=== PATIENT | male | born 1950 | race Caucasian/White ===

== ENCOUNTER 2020-01-31 11:01 | Day surgery (SDC) | payer OTHER, MEDICARE ==
[~2020-01-31] VITALS: Ht 182.9 cm; Wt 93.9 kg
[~2020-01-31 11:01] MED LIST: PRINIVIL10 MG PO; TRAZ100 PO
--- NOTE | 2020-01-31 11:32 | NUR ---
History, Chart, Medications and Allergies reviewed before start of procedure. Lungs clear T/O to Auscultation. Patient confirms NPO status and agrees with scheduled surgery. Pre-Op teaching done. Pt verbalizes understanding.
--- NOTE | 2020-01-31 14:54 | NUR ---
ADJUNCT INSTRUCTOR | Patient B/P This RN was handed off patient with reported pressures from Anesthesia during OR case being in 180's systolically. B/P cuffed timed out initially on patient arrival, with B/P cuff on left arm. Retried blood pressure on right side and received initial reading of 73/53. Readjusted cuff and initiated another pressure with similar, 73/52. Switched cuff back to left side and got result of 171/75, and then 168/74. Atif RN spoke with surgerons (Dr. Israel and Dr. 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 Dr. Ventura (anesthesia) also aware. Will continue to monitor.
--- NOTE | 2020-01-31 16:51 | NUR ---
TREMORS OF BILATERAL ARMS NOTED WHEN PT EATING PUDDING. PT DENIES HX OF TREMORS. PT DENIES USE OF ETOH, WILL CONTINUE TO MONITOR
--- NOTE | 2020-01-31 17:58 | NUR ---
SUMMARY PT REPORTS VERY MINIMAL PAIN AT THIS TIME AFTER MEDICATED WITH TORADOL AND ROXICODONE. TAKING PO FOOD AND FLUID WITHOUT NAUSEA. ABD BINDER IN PLACE. PT WITH GOOD EFFORT ON IS. CONTINUES WITH SOME TREMORS OF BILAT ARMS. CIWA UNCHANGED FROM INITIAL ASSESSMENT
--- NOTE | 2020-02-01 05:41 | NUR ---
SHIFT SUMMARY: PT POD #1 FOR INCISIONAL HERNIA REPAIR. MIDLINE DRESSING CDI. PAIN BEING MANAGED WITH TORADOL AND 5MG OXY PER EMAR. PT C/O NAUSEA THIS MORNING AND MEDICATED WITH ZOFRAN TWICE. PT REPORTS EMESIS X3. PT DID THROW UP A MODERATE SIZED BLOOD CLOT AT 0440. DR. ARMSTRONG NOTIFIED AT APPROX 0445 AND NO NEW ORDERS OBTAINED AT THIS TIME. WILL CTM. ALL VS WNL. PT VOIDING IN BEDSIDE URINAL.
--- NOTE | 2020-02-01 11:30 | NUR ---
SHIFT ASSESSMENT UPON ENTERING THE ROOM TO ASSESS PT HE WAS SITTING AT THE EDGE OF THE BED AND TALKING WITH SALES APPLICATIONS ENGINEER. HE IS ALERT BUT HIS CONVERSATION IS COMFUSED. PT IS HAVING A FLIGHT OF IDEAS. 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 PT DECLINED BLOOD DRAW. HE ALSO DECLINED TO ALLOW STAFF TO ASSESS HIM. HE HAS AN ABD BINDER IN PLACE WHICH HE DECLINES TO REMOVE FOR SURGICAL SITES TO BE ASSESSED. PT DECLINES ALLOWING STAFF TO LISTEN TO HEART OR LUNGS. AT THIS TIME PT IS OBSERVED SITTING AT THE EDGE OF THE BED ALERT. HE TOLERATED BREAKFAST AND HAS NOT HAD ANY EPISODES OF VOMITING SINCE MY SHIFT BEGAN. WILL CONTIUE TO MONITOR. AT THIS TIME.
--- NOTE | 2020-02-01 11:35 | NUR ---
DR. CHENEY CONSULTED ON PT R/T HIS DELUSIONS. ORDER TO START ABILIFY.
--- NOTE | 2020-02-01 14:07 | NUR ---
UNABLE TO REASON WITH PT REGARDING GOING OUTSIDE TO SMOKE. HE DECLINED A NICOTINE PATCH, HE BELIEVE SMOKING KEEPS AWAY BUGS. IN HIS CURRENT MENTAL STATE STAFF IS UNABLE TO REASON WITH HIM. ORDERS OBTAINED THAT IT IS OK FOR PT TO GO OUTSIDE AND SMOKE. PT IS IN HIS WHEELCHAIR AND CAN SELF PROPEL HIMSELF OUTSIDE. PT EDUCATED ABOUT THE RISKS OF BEING OUTSIDE AND NEAR OTHER PEOPLE WITH REGARDS TO THE COVID-19 VIRUS. PT IS ALSO ROAMING AROUND THE HOSPITAL ATTEMPTING TO TALK TO OTHER PATIENTS. HE IS NON-COMPLIANT WITH STAFF REQUESTS TO STAY IN HIS ROOM.
--- NOTE | 2020-02-01 16:25 | NUR ---
PT HAS BEEN OUTSIDE FOR OVER AN HOUR AT THIS TIME, SINCE APPROXIMATELY 1430. STAFF IN ER REPORT PT IS SITTING UNDER THE ER ENTRANCE COVER, CONTENTLY. THIS RN ASKED ER STAFF TO REQUEST PT TO RETURN TO HIS ROOM SO HE CAN BE MONITORED. WILL CONTINUE TO MONITOR AND UPDATE DR. CHENEY NEEDED. IF PT IS UNWILLING TO BE MONITORED WILL CONSIDER REQUEST FOR DISCHARGE DR. CHENEY SEES APPROPRIATE.
--- NOTE | 2020-02-01 17:11 | NUR ---
PT REMAINS CONFUSED, WITH FLIGHT OF IDEAS AND GRANDIOSE DILUSIONS. HE RESPONDS WELL TO A KIND CALM VOICE. HE TENDS TO WANDER. HE HAS A DOCOTOR'S ORDER TO GO OUTSIDE TO SMOKE.
--- NOTE | 2020-02-01 17:26 | NUR ---
SHIFT SUMMARY PT IS POD# 1 FROM A HERNIA REPAIR. HE IS HAVING DELLUSIONS. HE DOES NOT FOLLOW DIRECTIONS WELL BECAUSE OF FEARS AND LACK OF TRUST REGARDING STAFF INTENTIONS. WILL CONTINUE TO MONITOR.
--- NOTE | 2020-02-01 18:01 | NUR ---
PT IN AND OUT OF ROOM, UNABLE TO CHECK IN AND ROUND ON PT, CURRENTLY NOT IN ROOM.
--- NOTE | 2020-02-01 18:32 | NUR ---
PT IS POD#1 FOR AN INCISIONAL HERNIA REPAIR WITH MESH. HE HAD DECLINED SOME OF THE COMPONENTS OF THE PHYSICAL ASSESSMENT. HE LET ME LISTEN TO HIS HEART AND LUNG SOUNDS. HEART SOUNDS WERE RAPID (102 bpm) AND REGULAR. PT REPORTED VOMITING UP BLOOD THIS MORNIG. HE DECLINED A BLOOD DRAW FOR CBC. HE ALSO DECLINED ABILIFY. THIS MORNING UNTIL THE AFTERNOON THE PATIENT DISPLAYED CONFUSION, FLIGHT OF IDEAS, GRANDIOSE DELUSIONS, AND SUSPICIOUSNESS OF FOOD, WATER AND STAFF INTENTIONS. OF APROXIMATELY 1700 HR HE HAS CALMED DOWN AND HIS SPEECH IS LESS RAPID AND PRESSURED. HE ALSO TENDS TO WANDER. THE PATIENT IS ALLOWED TO GO OUTSIDE TO SMOKE PER DOCTOR'S ORDER. HE HAS HAD MOSTLY COFFEE TODAY AND HAS HARDLY TOUCHED HIS MEALS.
--- NOTE | 2020-02-01 19:05 | NUR ---
PT BACK IN ROOM, 1 OXYCODONE GIVEN FOR C/O PAIN, PT ALSO AGREED TO TAKE ABILIFY, NO OTHER CHANGES THIS EVENING.
--- NOTE | 2020-02-01 19:21 | NUR ---
PT OUTSIDE VIA WHEEL CHAIR. NO DISTRESS NOTED. PLAN TO DO ASSESSMENT WHEN PT RETURNS.
--- NOTE | 2020-02-01 19:49 | NUR ---
PT CAME BACK TO HIS ROOM, W/ WALKER.
--- NOTE | 2020-02-01 20:37 | NUR ---
PT LEFT ROOM HEADING OUT IN HIS WHEELCHAIR. APPEARS CALM.
--- NOTE | 2020-02-01 21:58 | NUR ---
PT ALLWOED MINIMAL ASSESSMENT, REFUSING TO HAVE VITALS TAKEN. NO DISTRESS NOTED AT THIS TIME. WILL CONT TO MONITOR AND ATTEMPT TO OBTAIN VITALS AT LATER TIME WHEN PT ALLOWS.
--- NOTE | 2020-02-02 00:22 | NUR ---
PT OUT OF ROOM
--- NOTE | 2020-02-02 02:04 | NUR ---
PT AMB SELF OUTSIDE IN WHEEL CHAIR. PT EDUCATED ON NEED TO REMAIN INSIDE HOSPITAL R/T COVID PIOICY. PT ALSO REMINDED OF QUIET HOURS AND NEED TO KEEP NOISES DOWN FOR THE OTHER PT'S ON THE UNIT. PT BECAME INCREASINGLY AGITATED AND PARANOID, PT'S VOICE BECOMING LOUDER W/ESCALATING BEHAVIOR. PT WHEELED SELF OUTSIDE "FOR EXERCISE AND TO SMOKE" DESPITE EDUCATION. NURSING LEASE BUYER UPDATED.
--- NOTE | 2020-02-02 04:00 | NUR ---
PT CAME BACK IN HIS ROOM AT 0350 AM W/ WHEELCHAIR. WENT OUT WANDERING AROUND THE HALLWAY AGAIN AT 0400 AM. HE WAS CALM AND PLEASANT.
--- NOTE | 2020-02-02 05:02 | NUR ---
PT REFUSE LAB DRAWN, WENT OUT WANDERING IN THE HALLWAY AGAIN. PT LOOKS CONFUSE AND LITTLE AGITATED.
--- NOTE | 2020-02-02 07:40 | NUR ---
POD 1 S/P HERNIA REPAIR. DRESSING CDI, BINDER IN PLACE. PT ONLY ALLOWING MINIMAL ASSESSMENTS, REFUSED ALL VITALS AND LABS. PT REP MILD NAUSEA X1, NO EMESIS, SONNY REG PO, REP +FLATUS, NO BM. PT CONT TO HAVE ONGOING DELUSIONS W/PARANOIA. PT AGITATED AT TIMES WHEN ATTEMPTED TO MAINTAIN QUIET AND COVID POLICIES. PT AMB SELF OUTSIDE VIA WHEEL CHAIR FREQ T/O NIGHT. REPORT GIVEN TO DAY RN.
--- NOTE | 2020-02-02 07:52 | NUR ---
UNABLE TO ASSESS PT AT THIS TIME, NOT IN ROOM.
--- NOTE | 2020-02-02 09:13 | NUR ---
PT NOT IN ROOM.
--- NOTE | 2020-02-02 10:40 | NUR ---
PT NOT IN ROOM, NURSING STAFF NURSE ANESTHETIST NOTIFIED, SECURITY UNABLE TO LOCATE PT OUTSIDE OF BUILDING, NURSING STAFF NURSE ANESTHETIST AND NURSING STAFF LOOKING FOR PT.
--- NOTE | 2020-02-02 11:20 | NUR ---
PT LEFT THE FACILITY APPROXIMATELY 0730 THIS AM PER NURSING MOBILE APPLICATION ARCHITECT, DR. GLORIA NOTIFIED, STATES WILL DC PT.
--- NOTE | 2020-02-03 15:08 | NUR ---
02/03/20 1508 PapTyrel louis CHARTING OF DIAGNOSIS AND SURGERY PERFORMED FOR [facility] [place]
== END 2020-02-02 07:30 | disposition left against medical advice (07) ==
LOC: ORSCMMR 11:01 → SURS 11:01 → ORD 11:01 → ORSCMMR 11:02 → SURS 15:46 → ORD 02-02 07:30
PROVIDERS: Surgery
PROC: 0WUF0JZ Supplement Abdominal Wall with Synthetic Substitute, Open Approach (ICD-10-PCS; principal; 2020-01-31 12:15)
DX: K43.2 Incisional hernia without obstruction or gangrene (principal); I10 Essential (primary) hypertension; E78.5 Hyperlipidemia, unspecified; E11.9 Type 2 diabetes mellitus without complications; E03.9 Hypothyroidism, unspecified; F17.210 Nicotine dependence, cigarettes, uncomplicated; F25.9 Schizoaffective disorder, unspecified
CPT/HCPCS: 82947; A9270; C1781; J0360; J0690; J1100; J1885; J2250; J2405; J2704; J2710; J3010; J7030; J7120